=== PATIENT | female | born 1995 | race Caucasian/White ===

== ENCOUNTER 2019-04-20 21:06 | Inpatient (IN) | payer OTHER ==
[~2019-04-20] VITALS: Ht 170.2 cm; Wt 101.7 kg
[2019-04-20 21:19] VITALS: BP 153/87
[2019-04-20] MEDS ORDERED: MULTTAB20 PO (21:29)
[2019-04-20 21:49] VITALS: BP 132/74
[2019-04-20] MEDS ORDERED: OXYTOCIN DRIP 30 UNITS in IV 1 EA IV SCH (22:15)
[2019-04-20 22:29] LABS: HEMATOCRIT 36.8 % (36.0-47.0); HEMOGLOBIN 12.1 g/dl (12.0-15.5); MEAN CORPUSCULAR HEMOGLOBIN 30.6 pg (27.0-33.0); MEAN CORPUSCULAR HGB CONC 32.9 g/dl (32.0-36.5); MEAN CORPUSCULAR VOLUME 92.9 fl (80.0-96.0); PLATELET COUNT, AUTOMATED 278 10^3/uL (150-450); RED BLOOD COUNT 3.96 10^6/uL (4.00-5.40); WHITE BLOOD COUNT 13.1 10^3/uL (4.0-10.0)
--- NOTE | 2019-04-20 22:34 | HPEPDOC ---
Obstetrical History & Physical General Date of Admission Apr 20, 2019 at 22:06 History of Present Illness Patient is a 23 yo G1 @ 38+1wks gestation presents to L&D with concern for ROM a t 2000. denies contractions/VB. Chief Complaint: LOF, term Information Provided By: Patient Age: 23 : 1 Term: 0 Pre-term: 0 Abortions: 0 Livin Care Care: Good Care Dating Final EDC: May 03, 2019 Final EDC for Daily Update: May 03, 2019 Final EDC by: LMP Past Medical History Past Obstetrical History : Past Obstetrical History: Primgravida [employer] History: No pertinent history Past Medical History Medical History denies Surgical History: Denies/None Social History Marital Status: Family situation: Spouse/partner home * Smoker: non-smoker Alcohol: Denies Drugs: denies Imunizations Tdap status: current Influenza Status: current Allergies Coded Allergies: No Known Allergies (Unverified , 04/20/19) Medications Scheduled No122/Iron/Folic Acid ( Multi Tablet) 1 Each Tablet, 1 TAB PO DAILY Physical Examination Physical Examination GENERAL: Alert and oriented times three. ABDOMEN: Gravid and non-tender to touch. FETUS: Is vertex (VTX) by sterile vaginal examination (SVE), fetus is vertex (VTX) by Willy. HEART RATE: Regular rate and rhythm. LUNGS: Clear to auscultation (CTA). EXTREMITIES: No edema/erythema/tenderness EFW: 3400gm Vital Signs/I&O Vital Signs Date Time Temp Pulse Resp B/P (MAP) Pulse Ox O2 Delivery O2 Flow Rate FiO2 04/20/19 21:19 98.4 99 16 153/87 (109) Pertinent Laboratoy Data Blood Type: A- RBC Antibody Screen: Negative HIV: Negative Hepatitis B: Negative Rapid Plasma Reagin: Nonreactive Rubella: Immune Chlamydia/Gonorrhea: Negative Group B Streptococcus: Negative Anatomy Ultrasound Placenta Location: Fundal Normal Anatomy: Yes Placenta Previa: No Vaginal Examination Dilation: 3 cm Effacement: 50% Station: -1 Cervical Consistency: Soft Cervical Position: Middle Presentation: Cephalic presentation Assessment Heart Rate (FHR): 135 Variability: Moderate Accelerations: Positive Decelerations: None Tocometer Contractions: No Assessment/Plan Assessment patient is a 23 yo G1 @ 38+1wks gestation with PROM. Discussed with patient option of waiting to go into labor on her own vs. starting oxytocin for augmentation. Risk of infection with prolonged waiting discussed with patient. Patient desires to have augmentation with oxytocin. Discussed internal monitoring as needed. Risks of infection requiring IV antibiotics, bleeding needing blood transfusion and associated risks, emergent delivery, use of forceps or vacuum for operative vaginal delivery, need for internal monitoring, episiotomy. Plan Admit and orient. Forming Operator and consent. Diet: clears Group B Streptococcus (GBS) [negative]. Labs and intravenous (IV) per unit protocol. start pit for augmentation of labor anethesia consult. pelvis adequate for trial of labor. JUSTIN DUGGAN DO Apr 20, 2019 22:30
[2019-04-20 22:50] VITALS: BP 135/79
[2019-04-20 23:25] VITALS: BP 134/84
[2019-04-20 23:56] VITALS: BP 132/77
[2019-04-21] VITALS (58 sets, daily range): BP systolic 99–161; BP diastolic 50–83
[2019-04-21] MEDS ORDERED: FENTANYL 2MCG/ML ROPIVACAINE 0.2% IN 0.9% NACL 100ML IVBAG As Ordered ONE ×2 (06:32→17:32)
[2019-04-21] MEDS ORDERED: BUTORPHANOL 2 MG/ML INJ (J0595) As Ordered ONE (06:43)
[2019-04-21] MEDS ORDERED: PROMETHAZINE INJ 25 MG/ML VIAL (J2550) As Ordered ONE (06:44)
[2019-04-21] MEDS ORDERED: BUTORPHANOL 2 MG/ML INJ (J0595) IV ONE (06:45)
[2019-04-21] MEDS ORDERED: PROMETHAZINE INJ 25 MG/ML VIAL (J2550) IV ONE (06:45)
[2019-04-21] MEDS: FENTANYL/ROPIVACAINE/NACL BAG 100 ML EPIDURAL SCH ×2 (10:05→17:40)
[2019-04-21] MEDS ORDERED: NALOXONE INJ 0.4 MG/1 ML VIAL (J2310) IV PRN (10:45)
[2019-04-21] MEDS ORDERED: ONDANSETRON 4MG/2ML VIAL (J2405) IV PRN ×2 (10:45→21:45)
[2019-04-21] MEDS ORDERED: ePHEDrine SULFATE 25 MG/5 ML(5MG/ML) SYRINGE IV PRN (10:45)
[2019-04-21] MEDS ORDERED: REFRIGERATOR IV KEYS XX PRN (10:45)
[2019-04-21] MEDS ORDERED: EPIDURAL COMMENT XX SCH (10:45)
[2019-04-21] MEDS ORDERED: EPIDURAL/PCA KEYS XX PRN (10:45)
[2019-04-21] MEDS ORDERED: diphenhydrAMINE INJ 50MG/ML VIAL (J1200) IV PRN (10:45)
--- NOTE | 2019-04-21 12:46 | IPNPDOC ---
Text Note Date of Service The patient was seen on 04/21/19. NOTE Called to room due to FHR 60s. Patient repositioned with recovery of FHR 120s. SVE 8/100 (swelling)/+2. Patient comfortable with epidural now. Ctx q2-4min. Now fetus reassuring. continue current management. Expect delivery. VS,Fishbone, I+O VS, Fishbone, I+O Laboratory Tests 04/20/19 22:17 Vital Signs Date Time Temp Pulse Resp B/P (MAP) Pulse Ox O2 Delivery O2 Flow Rate FiO2 04/21/19 07:03 98.4 83 16 135/80 (98) Destini Abrams MD Apr 21, 2019 12:46
[2019-04-21] MEDS ORDERED: LR 1,000 ML IV ONE (20:00)
--- NOTE | 2019-04-21 20:02 | IPNPDOC ---
Text Note Date of Service The patient was seen on 04/21/19. NOTE Patient having pubic pain. Temp 101. FHT Cat 1, 140s, reactive, no decels, ctx q3min. SVE 10/100/+2. Start pushing. IVF 500ml bolus, Rocephin 2gm IV. VS,Fishbone, I+O VS, Fishbone, I+O Laboratory Tests 04/20/19 22:17 Vital Signs Date Time Temp Pulse Resp B/P (MAP) Pulse Ox O2 Delivery O2 Flow Rate FiO2 04/21/19 19:54 123 129/60 (83) 04/21/19 19:40 101.1 04/21/19 18:53 16 Destini Abrams MD Apr 21, 2019 20:02
[2019-04-21] MEDS: cefTRIAXone SOD 2 GM in D5W MINI-BAG PLUS 50 ML IV SCH (20:07)
[2019-04-21 21:19] LABS: CORD GAS ABE A -4.6; CORD GAS HCO3 A 21.4 MEQ/L; CORD GAS O2 SAT A 89.1 %; CORD GAS PCO2 A 42.6 mmHg; CORD GAS PH A 7.318 UNITS; CORD GAS PO2 A 45.1 mmHg; CORD GAS SBC A 20.5 MEQ/L; CORD GAS TCO2 A 22.7 MEQ/L
[2019-04-21 21:20] LABS: CORD GAS HCO3 V 20.7 MEQ/L; CORD GAS O2 SAT V 99.7 %; CORD GAS PCO2 V 37.1 mmHg; CORD GAS PH V 7.364 UNITS; CORD GAS PO2 V 134.2 mmHg; CORD GAS SBC V 21.2 MEQ/L; CORD GAS TCO2 V 21.8 MEQ/L
[2019-04-21] MEDS ORDERED: OXYTOCIN DRIP 30 UNITS in IV 1 EA IV SCH (21:41)
[2019-04-21] MEDS ORDERED: IBUPROFEN 600 MG TAB PO PRN (21:45)
[2019-04-21] MEDS ORDERED: LIDOCAINE 1% MDV 20ML VIAL INFIL ONE (21:45)
[2019-04-21] MEDS ORDERED: ANUSOL HC CREAM 30GM TOP PRN (21:45)
[2019-04-21] MEDS ORDERED: DIBUCAINE 1% OINTMENT 30GM TOP PRN (21:45)
[2019-04-21] MEDS ORDERED: RHOGAM 300 MCG (1500 IU) INJ (J2790) IM SCH (21:45)
[2019-04-21] MEDS ORDERED: METHYLERGONOVINE MALEATE 0.2 MG TAB PO PRN (21:45)
[2019-04-21] MEDS ORDERED: MEASLES,MUMPS,RUBELLA VACCINE INJ (MMR-II) (90707) SC SCH (21:45)
[2019-04-21] MEDS ORDERED: ACETAMINOPHEN 500 MG TAB PO PRN (21:45)
[2019-04-21] MEDS: IBUPROFEN 800 MG TAB PO PRN (22:03)
--- NOTE | 2019-04-21 23:46 | DNPDOC ---
[facility] Delivery Note Delivery Note DATE OF DELIVERY: 04/21/2019 PREDELIVERY DIAGNOSIS:. Term , SROM-38 2/7 weeks' gestation and labor. POST DELIVERY DIAGNOSIS: Delivered. PROCEDURE: Spontaneous vaginal delivery. TEACHING SPECIALISTS: Dr.. Destini Abrams ANESTHESIA:, Epidural. ESTIMATED BLOOD LOSS: 300 mL. FINDINGS: 3458 g, boy , Score 2/4/7, nuchal cord times 0. DELIVERY SUMMARY:Patient is a 23-year-old 1 now para 1 who was admitted to labor and delivery for active labor for 25hours. Patient SROM clear around 20:00 04/20/2019. Baby boy head was delivered without difficulty over intact perineum in KELLY position at 2103. The nose and mouth were bulb suctioned.. No nuchal cord was noted. The shoulders were then delivered without difficulty. Cord was then clamped x2 and cut. Infant was handed to nursing staff due to appearing limp and blue color and poor respiratory effort. Pitocin bolus was started. Perineum was inspected and found to have. Periurethral and left labial laceration. This was repaired with 1% lidocaine 6cc with 2-0 chromic. The placenta was then delivered at 2117 spontaneously intact. Cord had a 3 vessel cord. EBL was, 300 mL. The vagina and perineum were reinspected and no further lacerations were found and hemostasis was good. Fundus was firm. Patient tolerated delivery well. Destini Abrams MD Apr 21, 2019 23:46
[2019-04-22 06:14] VITALS: BP 111/66
[2019-04-22] MEDS: FENTANYL/ROPIVACAINE/NACL BAG 100 ML EPIDURAL SCH ×2 (06:45→12:27)
--- NOTE | 2019-04-22 07:35 | IPNPDOC ---
Progress Note Date of Service: Apr 22, 2019 Day#: 1 Progress Note SUBJECT: Patient is a 23-year-old 3 now Para 1 status post spontaneous vaginal delivery c/b chorioamniotis at with post periurethral and left labial laceration and repair, doing well day # 1. She has been afebrile. Minimal ambulation due to late night delivery. Pumping but minimal milk supply at this time. Reports lochia is moderate to heavy. Reports tolerable cramping . Voiding without difficulty. OBJECTIVE: VITAL SIGNS: Within normal limits, afebrile. Alert and oriented times three. Breast without erythema and nontender Breath sounds clear to auscultation. Heart rate: Regular rate and rhythm, no murmurs, rubs or gallops. Abdomen: Fundus firm at U-1. Soft, NTTP. Minimal lochia. Perineum intact. ASSESSMENT: Patient is a 23-year-old 3 now Para 1 status post spontaneous vaginal delivery c/b chorioamniotis PPD 1. Doing well. Vitals within normal limits, afebrile, hemodynamically stable with no evidence of infection. PLAN: 1. Continue to monitor. 2. Tylenol and Motrin for pain. 3. Encourage pumping and ambulation. 4. Routine PP visit in 6 weeks in clinic. VS, I&O, 24H, Jetbone Vital Signs/I&O Vital Signs Date Time Temp Pulse Resp B/P (MAP) Pulse Ox O2 Delivery O2 Flow Rate FiO2 04/22/19 06:14 98.4 89 16 111/66 (81) 98 Room Air I&O- Last 24 Hours up to 6 AM 04/22/19 06:00 Intake Total 1000 ml Output Total 300 ml Balance 700 ml Laboratory Data 24H LABS Laboratory Tests 2 04/21/19 21:13: Cord Arterial Blood pH 7.318, Cord Arterial Blood PCO2 42.6, Cord Arterial Blood PO2 45.1, Cord Arterial Blood HCO3 21.4, Cord Arterial Blood Total CO2 22.7, Cord Arterial Blood Base Excess -4.6, Cord Arterial Base Excess (Standard 20.5, Cord Arterial Bld Oxygen Saturation 89.1, Cord Venous Blood pH 7.364, Cord Venous Blood PCO2 37.1, Cord Venous Blood PO2 134.2, Cord Venous Blood HCO3 20.7, Cord Venous Blood Total CO2 21.8, Cord Venous Base Excess (Actual) -4.0, Cord Venous Base Excess (Standard) 21.2, Cord Venous Blood Oxygen Saturation 99.7 Destini Abrams MD Apr 22, 2019 07:35
[2019-04-22] MEDS: PRENATAL VITAMINS CHEWABLE TABLET PO SCH (07:55)
[2019-04-22] MEDS: DOCUSATE SODIUM 100 MG CAP PO SCH ×2 (07:56→21:39)
[2019-04-22] MEDS: IBUPROFEN 800 MG TAB PO PRN ×2 (07:56→17:46)
[2019-04-22 18:00] VITALS: BP 109/72
[2019-04-22] MEDS: cefTRIAXone SOD 2 GM in D5W MINI-BAG PLUS 50 ML IV SCH (20:00)
[2019-04-23 06:00] VITALS: BP 105/57
[2019-04-23] MEDS: PRENATAL VITAMINS CHEWABLE TABLET PO SCH (08:04)
[2019-04-23] MEDS: DOCUSATE SODIUM 100 MG CAP PO SCH (08:05)
[2019-04-23] MEDS: IBUPROFEN 800 MG TAB PO PRN (08:13)
--- NOTE | 2019-04-23 10:49 | IPNPDOC ---
Progress Note Date of Service: Apr 23, 2019 Day#: 2 Progress Note PPD 2 SUBJECT: Tiffany is a 23-year-old 1 now Para 1 status post spontaneous vaginal delivery c/b chorioamnionitis, doing well day # 2. She presented with PROM, had augmentation and delivered at 21:04 on 04/21 at 38w2d. Reports tolerable cramping. Normal lochia. Voiding without difficulty. Ambulating without lightheadedness/dizziness. Tolerating regular diet without n/v. Breast pumping for baby in NICU. No f/c/CP/SOB. OBJECTIVE: VITAL SIGNS: Within normal limits, afebrile. Alert and oriented times three. Abdomen: Fundus firm at U-2. Soft, NTTP. Extremities: no pain with palpation of calves ASSESSMENT: Tiffany is a 23-year-old 1 now Para 1 status post spontaneous vaginal delivery c/b chorioamnionitis, doing well day # 2. Vitals within normal limits, afebrile, hemodynamically stable with no e vidence of infection. PLAN: 1. Discharge to boarding status 2. Tylenol and Motrin for pain. 3. Encourage pumping and ambulation. 4. Routine PP visit in 6 weeks in clinic. 5. Discussed return precautions at length Dr. Eli Ross MD VS, I&O, 24H, Fishbone Vital Signs/I&O Vital Signs Date Time Temp Pulse Resp B/P (MAP) Pulse Ox O2 Delivery O2 Flow Rate FiO2 04/23/19 06:00 97.2 83 16 105/57 (73) 99 Room Air Eli Ross MD Apr 23, 2019 10:49
[2019-04-23] MEDS ORDERED: ACET-683 PO (10:50)
[2019-04-23] MEDS ORDERED: DIBU10OI TOP (10:50)
[2019-04-23] MEDS ORDERED: IBUP80TA PO (10:50)
--- NOTE | 2019-04-23 10:53 | DS.PDOC ---
Discharge Summary General Date of Admission Apr 20, 2019 at 22:06 Date of Discharge Apr 23, 2019 Discharge Summary PROCEDURES PERFORMED DURING STAY: spontaneous vaginal delivery ADMITTING DIAGNOSES: 1. PROM at 38w2d DISCHARGE DIAGNOSES: 1. PROM at 38w2d, delivery complicated only by chorioamnionitis COMPLICATIONS/CHIEF COMPLAINT: Labor Check. HISTORY OF PRESENT ILLNESS/HOSPITAL COURSE: Tiffany is a 23-year-old 1 now Para 1 status post spontaneous vaginal delivery c/b chorioamnionitis, doing well day # 2. She has had a benign course. At time of discharge, her vitals were within normal limits, afebrile, hemodynamically stable with no evidence of infection. DISCHARGE MEDICATIONS: Please see below. ALLERGIES: Please see below. PHYSICAL EXAMINATION ON DISCHARGE: VITAL SIGNS: Within normal limits, afebrile. Alert and oriented times three. Abdomen: Fundus firm at U-2. Soft, NTTP. Extremities: no pain with palpation of calves LABORATORY DATA: Please see below. ACTIVITY: As tolerated, vaginal rest 6 weeks DIET: regular DISPOSITION: home DISCHARGE PLAN/INSTRUCTIONS: 1. Discharge to boarding status 2. Tylenol and Motrin for pain. 3. Encourage pumping and ambulation. 4. Routine PP visit in 6 weeks in clinic. 5. Discussed return precautions at length DISCHARGE CONDITION: Stable TIME SPENT ON DISCHARGE: Greater than [address] Eli Ross MD Vital Signs/I&Os Vital Signs Date Time Temp Pulse Resp B/P (MAP) Pulse Ox O2 Delivery O2 Flow Rate FiO2 04/23/19 06:00 97.2 83 16 105/57 (73) 99 Room Air Discharge Medications Scheduled No122/Iron/Folic Acid ( Multi Tablet) 1 Each Tablet, 1 TAB PO DAILY, (Reported) Scheduled PRN Acetaminophen (Acetaminophen) 500 Mg Tablet, 1,000 MG PO TIDP PRN for fever or headache Dibucaine (Dibucaine) 28 Gm Oint...g., 0 DOSE TOP Q4HP PRN for PAIN Ibuprofen (Ibuprofen) 800 Mg Tablet, 800 MG PO Q8HP PRN for PAIN LEVEL 6-10 Allergies Coded Allergies: No Known Allergies (Unverified , 04/20/19) Eli Ross MD Apr 23, 2019 10:53
[2019-04-23] MEDS ORDERED: cefTRIAXone SOD 2 GM in D5W MINI-BAG PLUS 50 ML IV SCH (20:00)
== END 2019-04-23 12:43 | disposition home or self-care (01) | DRG 805 ==
LOC: M LDO 21:06 → M LDI 22:06 → M OBS 04-21 23:22
PROVIDERS: ADMIT Obstetrics & Gynecology; ATTEND Obstetrics & Gynecology
PROC: 10E0XZZ Delivery of Products of Conception, External Approach (ICD-10-PCS; principal; 2019-04-21)
PROC: 0HQ9XZZ Repair Perineum Skin, External Approach (ICD-10-PCS; 2019-04-21)
DX: O42.02 Full-term premature rupture of membranes, onset of labor within 24 hours of rupture (principal); Z37.0 Single live birth; O41.1230 Chorioamnionitis, third trimester, not applicable or unspecified; Z3A.38 38 weeks gestation of pregnancy; O70.0 First degree perineal laceration during delivery